=== PATIENT | male | born 1955 | race Caucasian/White ===

== ENCOUNTER → 2017-03-06 23:34 | Emergency (ER) | payer BC ==
[~2017-03-06 23:34] MED LIST: DOXYcycline CAP(*) 100 MG PO ONE
[2017-03-06 23:43] VITALS: BP 146/76
--- NOTE | 2017-05-15 10:03 | ED ---
Skin Complaint - HPI Summary HPI Summary: Pt here w/ tick on Rt posterior thigh. Not sure how long this has been attached. Attempted to remove on his own but due to its location, he has not been able to achieve this task. Denies fever, chills, aches, chest pain, shortness of breath. Imms are UTD. - History of Current Complaint Chief Complaint: EDGeneral Time Seen by Provider: 03/07/17 00:13 Stated Complaint: TICK ON RIGHT BUTTUCK Hx Obtained From: Patient Pain Intensity: 0 Pain Scale Used: 0-10 Numeric - Allergy/Home Medications Allergies/Adverse Reactions: Allergies Allergy/AdvReac Type Severity Reaction Status Date / Time Alcohol Allergy Intermediate Facial Verified 07/13/13 22:50 Redness/Flushing PMH/Surg Hx/FS Hx/Imm Hx Previously Healthy: Yes Endocrine/Hematology History: Reports: Hx Anticoagulant Therapy - ASPIRIN 81MG Cardiovascular History: Denies: Hx Pacemaker/ICD Sensory History: Denies: Hx Hearing Aid Psychiatric History: Denies: Hx Panic Disorder - Surgical History Surgery Procedure, Year, and Place: SPLEENECTOMY 1981. DEVIATED SEPTUM 1975. LEFT SHOULDER MUSCLE REPAIR 2000. RIGHT SHOULDER NERVE SURGERY 2005. SINUS SURGERY 2003 - Immunization History Immunizations Up to Date: Yes Infectious Disease History: Reports: Hx Shingles - 8 yrs ago Denies: Traveled Outside the [place] in Last 30 Days - Family History Known Family History: Positive: None - Social History Alcohol Use: Occasionally Hx Substance Use: No Substance Use Type: Reports: None Hx Tobacco Use: Yes Smoking Status (MU): Current Every Day Smoker Review of Systems Constitutional: Negative Cardiovascular: Negative Respiratory: Negative Positive: no symptoms reported Musculoskeletal: Negative Skin: Other - see HPI Negative: Rash, Bruising Neurological: Negative Psychological: Normal All Other Systems Reviewed And Are Negative: Yes Physical Exam Triage Information Reviewed: Yes Vital Signs On Initial Exam: Initial Vitals Temp Pulse Resp BP Pulse Ox 98.6 F 92 18 146/76 98 03/06/17 23:40 03/06/17 23:40 03/06/17 23:40 03/06/17 23:40 03/06/17 23:40 Vital Signs Reviewed: Yes Appearance: Positive: Well-Appearing, No Pain Distress, Well-Nourished Skin: Positive: Warm, Dry - mildly engorged tick on Rt posterior thigh - no EM rash Eyes: Positive: EOMI Respiratory/Lung Sounds: Positive: Breath Sounds Present Cardiovascular: Positive: Pulses are Symmetrical in both Upper and Lower Extremities Musculoskeletal: Positive: Normal, Strength/ROM Intact Neurological: Positive: Normal, Sensory/Motor Intact Psychiatric: Positive: Normal Procedures - Procedure Summary Procedure Summary: Area cleaned on Rt thigh and tick removed completely with tick removal device w/ o difficulty. Pt tolerated well. Diagnostics - Vital Signs Vital Signs Temp Pulse Resp BP Pulse Ox 03/06/17 23:40 98.6 F 92 18 146/76 98 - Laboratory Lab Statement: Any lab studies that have been ordered have been reviewed, and results considered in the medical decision making process. Course/Dx - Diagnoses Provider Diagnoses: Tick bite of right thigh Discharge - Discharge Plan Condition: Stable Disposition: HOME Patient Education Materials: Tick Bite (ED) Referrals: Juaquin Paz MD [Primary Care Provider] - Additional Instructions: Keep area clean - monitor for erythema migrans rash (aka Bulls eye rash). Follow-up with PCP this week for recheck of wound. *If you develop fever, chills, nausea, headache, joint aches, fatigue, palpitations, neuropathies, seek medical attention ANGELIQUE
== END | disposition home or self-care (01) ==
LOC: ED 23:34
DX: S70.361A Insect bite (nonvenomous), right thigh, initial encounter (principal); W57.XXXA Bitten or stung by nonvenomous insect and other nonvenomous arthropods, initial encounter; Y93.9 Activity, unspecified; Y92.9 Unspecified place or not applicable; F17.210 Nicotine dependence, cigarettes, uncomplicated; Z79.82 Long term (current) use of aspirin; Z79.01 Long term (current) use of anticoagulants
CPT/HCPCS: 99281; A9270-GY

== ENCOUNTER → 2017-12-24 06:56 | Day surgery (SDC) | payer BC ==
[~2017-12-24 06:56] MED LIST changes: +Buffered Lidocaine 0.9% SYRIN* 5 ML/SYR SYRINGE INTRADERM ONE; +Buffered Lidocaine 0.9% SYRIN* 5 ML/SYR SYRINGE ONE; +Bupivacaine 0.5% SDV PF* 10-30ML VIAL ONE; -DOXYcycline CAP(*) 100 MG PO ONE; +Dexamethasone IV* 4 MG/ML 1 ML (4 MG) IV SLOW PU ONE; +Dexamethasone IV* 4 MG/ML 1 ML (4 MG) ONE; +EPHEDrine (Pressors)* 50 MG/ML VIAL ONE; +EPINEPHRINE 1 MG/ML 1 ML VIAL ONE; +Famotidine IV* 10 MG/ML 2 ML (20 mg) IV ONE; +Famotidine IV* 10 MG/ML 2 ML (20 mg) ONE; +HYDROcodone/ACETAMIN 5-325 MG* 1 TAB PO PRN; +Ketorolac INJ* 30 MG/ML 1 ML VIAL ONE; +Levalbuterol 0.63MG/3ML NEB* UNIT OF USE INH ONE; +Lidocaine 2% PF * 5 ML VIAL ONE; +Midazolam* 1 MG/ML 5 ML VIAL (5 MG) ONE; +Mivacurium Chloride* 20 MG/10 ML VIAL IV ONE; +Naloxone* 0.4 MG/ML 1 ML VIAL IV PRN; +Ondansetron INJ* 2 MG/ML VIAL ONE; +PROCHLORPERAZINE INJ 5 MG/ML 2 ML VIAL IV PRN; +Propofol* 10 MG/ML 20 ML BTL IV PUSH ONE; +ROPIVACAINE 5 MG/ML 30 ML BTL (0.5%) ONE; +Scopolamine 1.5 mg* PATCH ONE; +Scopolamine 1.5 mg* PATCH TRANSDERM ONE; +Scopolamine PATCH Remove* 1 NOTE MISC PATCH OFF ONE; +Silver Nitrate/Potassium Nitr* 1 EA STICK ONE; +ceFAZolin 2 GM (*##) 2 GM/100 ML BAG USE CEFA2SOL IVPB ONE; +fentaNYL* 50 MCG/ML 2 ML VIAL (100 MCG VIAL) IV PRN; +fentaNYL* 50 MCG/ML 2 ML VIAL (100 MCG VIAL) ONE; +oxyCODONE/Acetamin 5/325 MG* TAB PO PRN
[2017-12-24 13:09] VITALS: BP 127/80
--- NOTE | 2017-12-25 23:52 | OP ---
OPERATIVE REPORT: DATE OF OPERATION: 12/24/17 DATE OF : 51 SURGEON: Etienne Paige MD FRONT DESK HOST: JOSE An Physician medical office assistant instructor was required for the length of the procedure for positioning, assistance with ins trumentation, retraction, and closure. ANESTHESIOLOGIST: Ayaka Castellano MD ANESTHESIA: General anesthesia, regional interscalene block anesthesia, approximately 10 cc of 0.5% Marcaine without epinephrine placed with local anesthesia into the subcutaneous tissue surrounding th e open biceps tendon skin incision site. PRE-OP DIAGNOSES: 1. Right shoulder AC, acromioclavicular joint osteoarthritis. 2. Right shoulder subacromial impingement. 3. Likely right shoulder proximal biceps tendinosis versus tear. 4. History of 2006 right shoulder open subacromial decompression by Dr. Burris. POST-OP DIAGNOSES: 1. Right shoulder high-grade partial-thickness undersided rotator cuff tendon tear, supraspinatus. 2. Right shoulder acromioclavicular joint osteoarthritis. 3. Right shoulder subacromial impingement. 4. Right shoulder superior labral tear, unstable. 5. History of 2006 right shoulder open subacromial decompression by Dr. Burris. OPERATIVE PROCEDURE: 1. Right shoulder arthroscopic rotator cuff tendon repair, supraspinatus. 2. Right shoulder arthroscopic subacromial decompression, revision. 3. Right shoulder arthroscopic distal clavicle resection. 4. Right shoulder arthroscopic limited debridement with release of biceps tendon, debridement of rot ator interval, and superior labrum. 5. Right shoulder open proximal biceps tenodesis. ANTIBIOTICS: Ancef 2 g IV. IV FLUIDS: 1100 cc crystalloid. SPECIMEN: None. IMPLANTS: Mitek Gryphon anchor, 5.5 mm, triple-loaded. Also Mitek Gryphon knotless anchor, 5.5 mm. Arthrex proximal biceps tendon button. COMPLICATIONS: None. ESTIMATED BLOOD LOSS: Minimal. 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 No inciting injury or trauma. The patient had had right shoulder difficulties before. He was seen in [address]ks and [facility] with rotator cuff tendinitis and treated with naproxen and physical therapy. The patient had also had a right shoulder open subacromial decompression performed by Dr. Burris in 2006. Therefore, the patient has had a long history of right shoulder pain, although with some acute worsen ing since August 2017. I attempted nonoperative treatment with a subacromial cortisone injection, which helped partially. T he patient did home exercises, which he was well familiar with, having had difficulties with both kamille ulders in the past including surgery. The patient had had contralateral left shoulder surgery in the distant past by Dr. Zabala. The patient thinks that the biceps and possibly the rotator cuff were t reated. The patient described significant anterior shoulder pain, but also pain with reaching. The patient declined physical therapy and was interested in surgical management. MRI demonstrated acr omioclavicular joint osteophytes and some minimal tendinopathy of the rotator cuff. No clear tear of the proximal biceps tendon, but the patient had had much tenderness to palpation of the biceps tendo n on exam. The patient opted for surgical management. We briefly discussed risks and potential complications. DESCRIPTION OF PROCEDURE: The patient signed a written consent in preoperative holding. Operative e xtremity was marked in preoperative holding. In the operative holding, the patient had an interscale ne regional nerve block performed by Dr. Castellano. The patient was taken back to the operating room and placed supine on the operating room table. The patient was sedated and intubated. The patient was t ransferred in the lateral decubitus position. Arm was placed in a longitudinal traction and the appr opriate amount of forward flexion and abduction, 15 pounds. Axillary roll was placed. Beanbag was escobedo rdened. All bony prominences were padded. The right shoulder was prepped and then draped. Surgical time-out performed. I entered the patient's right shoulder glenohumeral joint from posterior with a spinal needle and inj ected 30 cc of normal saline. I then established a right posterior shoulder arthroscopy portal using standard technique. There were 2 loose bodies within the glenohumeral joint, seemingly just cartila ginous. Surprisingly, as soon as I entered, there was a clear partial-thickness undersurface suprasp inatus rotator cuff tendon tear with a significant amount of footprint of the supraspinatus, greater tuberosity, visible. I made an anterior glenohumeral joint portal using standard technique under direct visualization. I debrided some tissue about the rotator interval. I used a shaver to remove the 2 cartilaginous loose bodies. I next entered an arthroscopic probe. I probed the superior labrum and there was a clear te ar and a clear lift off of more than 5 mm. The biceps tendon itself did not look significantly disea sed, although I had made the decision once I had seen the superior labrum tear that we would be requi red to cut and tenodesed the biceps. We had discussed preoperatively that if the biceps tendon were released, we would do an open tenodesis. I brought arthroscopic scissors into the joint and cut the biceps just off of its origin. I used an arthroscopic shaver to debride some of the superior labrum. I next used an arthroscopic probe and measured the exposed undersurface footprint. It was clearly wid er from medial to lateral than 6 mm. I would say it was 7 to 8 mm. Clearly greater than 50% of the thickness of the rotator cuff tendon. At that point, I decided that a rotator cuff repair would be r equired. I then slightly debrided some of the frayed tissue about the undersurface of the rotator cu ff in the location of the tear with an arthroscopic shaver. I then, from outside the shoulder while working in the glenohumeral joint, marked the area of the undersurface tear with a spinal needle. I then removed all fluid and instruments from the glenohumeral joint. I entered the subacromial space from posterior and anterior. The patient only had some mild bursitis throughout the subacromial space. I established a lateral subacromial portal under direct visualiza tion and used an arthroscopic shaver to debride that bursitis. I identified the spinal needle locati on. I probed that area of the rotator cuff tendon. I created a posterolateral subacromial portal fo r improve visualization. I would say that a tear seemed to be about the mid point of the supraspinat us, similar to what I saw from the glenohumeral joint side. I relatively easily completed that under surface rotator cuff tear with an arthroscopic shaver. With an arthroscopic shaver and then a vapor, I cleared off the adjacent footprint, readying it for implant placement. I also touched that spot w ith a cass to ready it for healing. I used a grasper to show that the rotator cuff would clearly adv ance to bone. I then viewing from posteriorly, did my subacromial decompression. Previously, I had debrided the un dersurface of the acromion with a vapor electrocautery. At this point, I visualized the anterior asp ect of the acromion and I debrided some remaining hook, both lateral and medial, using an arthroscopi c cass. There were some sutures visible, likely from some type of deltoid repair involved with the o pen subacromial decompression in the patient's prior open shoulder surgery. I next proceeded with rotator cuff repair. Through a superolateral skin incision, I placed an anchor . At first, I tried to place an anchor more medially in the footprint. However, the bone was not of high quality there. I suspect that, that was the location of a humeral head cyst. Therefore, I gigi som the anchor more laterally in the footprint, where the bone quality was excellent. I placed a tri ple-loaded anchor. At this point, I then had in place 2 Arthrex 7 mm plastic cannulas. Using the ideal suture passers from [employer], I then placed 3 horizontal mattress stitches in the rotato r cuff. After placing all the sutures, I then tied the knots. This repair as seemed under just a sl ightest bit of tension, likely because I was advancing the rotator cuff more laterally on the footpri nt. To supplement the repair and really pull those tissues down nicely, I decided to incorporate as well a lateral row anchor. This is despite the fact that after I placed my medial row anchor to prob ing with an arthroscopic probe, the repair was watertight and looked excellent. I cleared off some tissue lateral and inferior to the first anchor with vapor. I, next punched and p laced a knotless anchor with 4 sutures from the medial row, tightened appropriately. Rotator cuff te ndon apposition of bone was excellent, stable with movement of the shoulder and certainly to probing. I then addressed the AC joint. I removed some bursitic tissue from about the AC joint and then remov ed at least 8 mm at the distal end of the clavicle with an arthroscopic cass. I removed all instruments and fluid from the subacromial space. I closed skin incisions with figure- of-eight and 10 stitches using nylon 4.0 suture. We next softened the beanbag and converted the patient to a supine position with Anesthesia watching the head and neck throughout. We then translated the patient to more appropriately center him over t he OR table. A short longitudinal incision, perhaps 4 cm long was made over the anteromedial left upper arm, martine red just distal to the inferior edge of the pectoralis major tendon. I cut skin, dissected through s ubcutaneous tissue, palpated the pec major tendon and fall back to the bicipital groove. Retractors placed. The long head of the biceps tendon was pulled from the wound. Bicipital groove was cleared off with periosteal elevator and Bovie electrocautery. A pin was placed through the anterior humeral cortex. Marked appropriate exit point for a stitch based on the length tension relationship with the biceps. I placed 3 stitches with FiberLoop suture. I loaded the biceps button with the suture. I placed th e button and flipped it and tightened it. I placed a stitch. I next placed one more stitch using a free needle through the proximal biceps tendon for supplementation. Cut ends of sutures and end of b iceps, proximally. Irrigation. Removal of retractors. Closure of subcutaneous tissue with buried s imple stitches using Vicryl 3.0 suture. Closure of subcuticular layer with a running stitch using Mo nocryl 4.0 suture. Mastisol, Steri-Strips. 4x4 and then Tegaderm placed over the anterior incision. It should be noted that prior to dressing that wound, I placed 10 cc approximately of Marcaine 0.5% about the subcutaneous tissue about that wound. On the arthroscopy skin incisions, placed Xeroform followed by 4x4s, ABDs, and foam tape. The patien t's shoulder was placed in a sling with abduction pillow, UltraSling. Cooling unit was applied. The patient was extubated and brought to the PACU. Postoperatively, the patient will receive Keflex for infection prophylaxis and Percocet. The patient will start physical therapy within 1 week of procedure. The patient will take aspirin 325 mg p.o. b .i.d. x2 weeks postoperatively because of his factor V Leiden deficiency. The patient will follow up with me in 10 to 14 days postoperatively. [id number]/[facility] #: [id number]
== END | disposition home or self-care (01) ==
LOC: OR 06:56
PROVIDERS: ATTEND Orthopaedic Surgery
DX: M75.101 Unspecified rotator cuff tear or rupture of right shoulder, not specified as traumatic (principal); M75.41 Impingement syndrome of right shoulder; M75.21 Bicipital tendinitis, right shoulder; M24.111 Other articular cartilage disorders, right shoulder; M19.011 Primary osteoarthritis, right shoulder; F17.210 Nicotine dependence, cigarettes, uncomplicated; Z90.81 Acquired absence of spleen; G89.18 Other acute postprocedural pain
CPT/HCPCS: 36415; 86803; A9270-GY; C1776; J1100; J1885; J2250; J2405; J2704; J2795; J3010

== ENCOUNTER 2018-04-27 20:55 | Emergency (ER) | payer BC ==
[2018-04-27] MEDS ORDERED: Sulfamethox/Trimethoprim DS 800/160* TAB PO ONE (23:08)
--- NOTE | 2018-04-27 23:08 | ED ---
Skin Complaint - HPI Summary HPI Summary: 62-year-old male presents with rash to groin for the past for past couple days. The rash has been getting bigger. the area has become more painful. Has not come to head. No drainage from the rash. No new products or soaps. Denies any history of MRSA. Is not diabetic. Denies any history of abscess. Has never had this before. No fevers. No other symptoms. Has minimal surrounding redness to the area. Is not itchy. - History of Current Complaint Chief Complaint: EDRashSkinAbscess Time Seen by Provider: 04/27/18 21:54 Stated Complaint: RASH Pain Intensity: 2 - Allergy/Home Medications Allergies/Adverse Reactions: Allergies Allergy/AdvReac Type Severity Reaction Status Date / Time alcohol Allergy facial Verified 12/24/17 07:21 redness PMH/Surg Hx/FS Hx/Imm Hx Endocrine/Hematology History: Reports: Hx Anticoagulant Therapy - ASPIRIN 81MG Denies: Hx Diabetes Cardiovascular History: Denies: Hx Hypertension, Hx Pacemaker/ICD GI History: Denies: Other GI Disorders History: Denies: Hx Renal Disease Musculoskeletal History: Reports: Hx Arthritis - mild, knees Sensory History: Reports: Hx Contacts or Glasses - glasses Denies: Hx Hearing Aid Opthamlomology History: Reports: Hx Contacts or Glasses - glasses Psychiatric History: Denies: Hx Panic Disorder - Surgical History Surgery Procedure, Year, and Place: SPLEENECTOMY 1981. DEVIATED SEPTUM 1975. LEFT SHOULDER MUSCLE REPAIR 2000. RIGHT SHOULDER NERVE SURGERY 2005. SINUS SURGERY 2003 Hx Anesthesia Reactions: No Infectious Disease History: No Infectious Disease History: Reports: Hx Shingles - 8 yrs ago Denies: Traveled Outside the [place] in Last 30 Days - Family History Known Family History: Positive: None - Social History Alcohol Use: None Hx Substance Use: No Substance Use Type: Reports: None Hx Tobacco Use: Yes Smoking Status (MU): Current Every Day Smoker Amount Used/How Often: 5 cigs a day for 30 yrs Review of Systems Negative: Fever Negative: Chest Pain Negative: Shortness Of Breath Positive: Other - abscess left groin All Other Systems Reviewed And Are Negative: Yes Physical Exam Triage Information Reviewed: Yes Vital Signs On Initial Exam: Initial Vitals Temp Pulse Resp BP Pulse Ox 99.0 F 78 14 134/86 95 04/27/18 20:58 04/27/18 20:58 04/27/18 20:58 04/27/18 20:58 04/27/18 20:58 Vital Signs Reviewed: Yes Appearance: Positive: Well-Appearing Skin: Positive: Other - 3cm by 2cm on left groin Head/Face: Positive: Normal Head/Face Inspection Eyes: Positive: Normal, Conjunctiva Clear ENT: Positive: Pharynx normal Respiratory/Lung Sounds: Positive: Clear to Auscultation, Breath Sounds Present Cardiovascular: Positive: Normal, RRR Musculoskeletal: Positive: Normal Neurological: Positive: Normal Psychiatric: Positive: Normal Procedures - Incision and Drainage left groin Site: left groin Anesthesia: Local Instrument(s): Needle Diagnostics - Vital Signs Vital Signs Temp Pulse Resp BP Pulse Ox 04/27/18 20:58 99.0 F 78 14 134/86 95 - Laboratory Lab Statement: Any lab studies that have been ordered have been reviewed, and results considered in the medical decision making process. Course/Dx - Course Course Of Treatment: 62-year-old male presents with rash to groin for the past for past couple days. The rash has been getting bigger. the area has become more painful. Has not come to head. No drainage from the rash. No new products or soaps. Denies any history of MRSA. Is not diabetic. Denies any history of abscess. Has never had this before. No fevers. No other symptoms. Has minimal surrounding redness to the area. Is not itchy. On exam has abscess to left groin attempted to do a needle aspiration did not get anything. Will place on Bactrim. She'll place heat on area. Patient understands agrees the plan. - Differential Diagnoses - Skin Complaint Differential Diagnoses: Abscess, Cellulitis, Contact Dermatitis - Diagnoses Provider Diagnoses: Abscess Discharge - Sign-Out/Discharge Documenting (check all that apply): Patient Departure - Discharge Plan Condition: Good Disposition: HOME Prescriptions: Sulfamethox/Trimethoprim DS* [Bactrim DS 800/160 TAB*] 1 tab PO BID #19 tab Patient Education Materials: Abscess (ED) Referrals: Jadiel Omalley MD [Primary Care Provider] - Additional Instructions: Take antibiotic twice a day for 10 days, first dose given in ED Apply warm compresses to area Take ibuprofen or Tylenol for pain every 6 hours Follow up with primary within 5 days Return to ED if develop fever, area of redness spreads, or any new or worsening symptoms - Billing Disposition and Condition Condition: GOOD Disposition: Home
[2018-04-27 23:29] VITALS: BP 135/85
== END 2018-04-27 23:27 | disposition home or self-care (01) ==
LOC: ED 20:55
DX: L02.214 Cutaneous abscess of groin (principal); Z79.82 Long term (current) use of aspirin; F17.210 Nicotine dependence, cigarettes, uncomplicated
CPT/HCPCS: 10060; 99282; A9270-GY

== ENCOUNTER 2018-06-08 18:08 | Emergency (ER) | payer BC ==
[2018-06-08 18:19] VITALS: BP 147/102
--- OUTSIDE RECORDS SUMMARY | 2018-06-08 18:27 | XMS REPORT ---
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 Active Onset: 11/05/2011 Malaise and fatigue Alcides Dejesus M.D. Active Onset: 07/21/2012 Hyperlipidemia Alcides Dejesus M.D. Active Onset: 11/17/2012 Shoulder joint pain Alcides Dejesus M.D. Active Onset: 03/22/2013 Eruption Alcides Dejesus M.D. Active Onset: 04/19/2013 Lyme disease Alcides Dejesus M.D. Active Onset: 05/14/2016 History of polyp of colon Juaquin Paz M.D. Active Onset: 05/14/2016 Chronic cluster headache Juaquin Paz M.D. Active Onset: 05/14/2016 Benign prostatic hypertrophy without Juaquin Paz M.D. Active outflow obstruction Onset: 05/14/2016 Entire body organ Juaquin Paz M.D. Active Onset: 05/14/2016 Adult health examination Juaquin Paz M.D. Active Onset: 05/14/2016 Hypercoagulability state Juaquin Paz M.D. Active Family History Date Family Member(s) Problem(s) Comments General No early myocardial infarction or cerebrovascular accident, no colon or prostate cancer in nuclear family, unlce with prostate cancer - age 80's Father due to age 81 als () Father ALS Father high cholesterol Mother high cholesterol lives with daughter First Sister Hypercholesterolemia Social History Type Date Description Comments Marital Status Patient is single Living Situation Patient lives alone General works for [employer] Cigarette Use Patient is a current cigarette 1/2-3/4 ppd smoker, smokes every day ETOH Use Denies alcohol use Recreational Drug Use Denies Drug Use Smoking Heavy tobacco smoker (more than 10 cigarettes/day) Daily Caffeine Consumes on average 3 cups of coffee per day Exercise Type/Frequency Current walks more than 2 miles 5x week Allergies, Adverse Reactions, Alerts Date Description Reaction Status Severity Comments 07/03/2011 NKDA active 01/22/2010 Alcoholic Beverage active 01/22/2010 Seasonal active 07/03/2011 Dust Mites active 07/03/2011 Cam Grass active 07/03/2011 Maple active Medications Medication Date Status Form Strength Qnty SIG Indications Ordering Provider Aspirin / Active Tablets 81mg 1 po qd Unknown [address] Ledbetter / Active Tablets 10mg 30tab 1 by mouth Juaquin FAl 0000 s every at Shallish, bedtime as M.D. 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 2016 for smoking cessation Chantix Starting 05/21/ Hx Tablets 0.5mg X 11 1pack refill Juaquin F. Month Carlyle 2015 - & 1 mg X with 1 mg Shallish, by mouth M.D. 2015 twice a day Naproxen 07/25/ Hx Tablets 500mg 30tab 1 by mouth 726.19 Merrill 2013 - twice a Christiansen, 03/26/ day M.D. 2015 Cyclobenzaprine 07/25/ Hx Tablets 5mg 30tab 1 by mouth 726.19 Merrill HCL 2013 - three Christiansen, 03/26/ times a M.D. 2015 day as needed Doxycycline 04/19/ Hx Tablets 100mg 20tab one tab po 088.81 Mcgrath Monohydrate 2012 bid for 10 A. Dejesus, 10/25/ M.D. 2013 Doxycycline 03/22/ Hx Tablets 100mg 42tab one tab po 782.1 Mcgrath Hyclate 2012 bid CesarAl Dejesus, 04/19/ M.D. 2012 Loprox 01/22/ Hx Cream 0.77% 30gm apply bid 112.2 Meche 2009 - to [facility], 07/03/ affected Afnp-C 2010 area Cutivate / Hx Lotion 0.05% Apply qd Unknown 0000 - To 07/03/ Affected 2010 Area Verapamil HCL ER / Hx Caps ER 120mg 30cap 1 po the Unknown 0000 - 24HR s am 2016 Relpax / Hx Tablets 40mg 10tab 1 po qd Unknown 0000 - s prn 09/10/ headache, 2010 repeat in 2 hours if necessary Aleve 00/ Hx Tablets 220mg 1 by mouth Unknown 0000 - twice a day 2018 Immunizations CPT Code Status Date Vaccine Lot # [id number] Given 06/30/2017 Influenza Vac, Quadrivalent, [place] [address] Given 05/14/2016 Meningococcal Conjugate Vaccine,Serogroups For [id number] Intramuscular Use 62314 Given 05/14/2016 Tdap Tetanus, W Pertussis [id number] 77866 Given 05/14/2016 Pneumococcal Conjugate Vacc-13 [id number] 64327 Given 05/14/2016 Hib PRP-T Conjugate 4 Dose Schedule [id number] [id number] Given 11/17/2013 Zostivax [id number] 17451 Given 07/30/2011 DO Not Use Split Influenza Virus Vaccine 18302 Given 02/26/2010 Tetanus And Diptheria Adult Preservative Free [id number] >7Yrs Vital Signs Date Vital Result Comment 05/28/2018 BP Systolic 118 mmHg BP Diastolic 60 mmHg Heart Rate 72 /min Body Temperature 97.9 F Respiratory Rate 16 /min Height 68 inches 5'8" Weight 185.38 lb BMI (Body Mass Index) 28.2 kg/m2 12/16/2017 BP Systolic 122 mmHg BP Diastolic 86 mmHg Heart Rate 68 /min Body Temperature 98.1 F Respiratory Rate 18 /min Height 68 inches 5'8" Weight 183.00 lb BMI (Body Mass Index) 27.8 kg/m2 07/16/2017 BP Systolic 120 mmHg BP Diastolic 78 mmHg Heart Rate 72 /min Body Temperature 97.8 F Respiratory Rate 16 /min Height 68 inches 5'8" Weight 181.00 lb BMI (Body Mass Index) 27.5 kg/m2 08/05/2016 BP Systolic 120 mmHg BP Diastolic 80 mmHg Heart Rate 68 /min Body Temperature 98.6 F Respiratory Rate 18 /min O2 % BldC Oximetry 98 % Height 68.5 inches 5'8.50" Weight 183.00 lb BMI (Body Mass Index) 27.4 kg/m2 05/14/2016 BP Systolic 110 mmHg BP Diastolic 80 mmHg Heart Rate 68 /min Body Temperature 98.1 F Height 68.5 inches 5'8.50" Weight 178.00 lb BMI (Body Mass Index) 26.7 kg/m2 03/26/2016 BP Systolic 128 mmHg BP Diastolic 82 mmHg Heart Rate 68 /min Body Temperature 98.1 F Height 68 inches 5'8" Weight 185.12 lb BMI (Body Mass Index) 28.1 kg/m2 07/25/2014 BP Systolic 110 mmHg BP Diastolic 70 mmHg Heart Rate 84 /min Body Temperature 99.3 F Respiratory Rate 16 /min Height 68 inches 5'8" Weight 180.00 lb BMI (Body Mass Index) 27.4 kg/m2 10/26/2013 BP Systolic 116 mmHg BP Diastolic 70 mmHg Heart Rate 90 /min Body Temperature 98.4 F Height 68 inches 5'8" Weight 187.38 lb BMI (Body Mass Index) 28.5 kg/m2 04/19/2013 BP Systolic 100 mmHg BP Diastolic 70 mmHg Heart Rate 76 /min Body Temperature 96.9 F Respiratory Rate 16 /min Height 68 inches 5'8" Weight 180.00 lb BMI (Body Mass Index) 27.4 kg/m2 03/22/2013 BP Systolic 112 mmHg BP Diastolic 78 mmHg Heart Rate 72 /min Body Temperature 97.6 F Respiratory Rate 15 /min Height 68 inches 5'8" Weight 179.00 lb BMI (Body Mass Index) 27.2 kg/m2 11/17/2012 BP Systolic 114 mmHg BP Diastolic 76 mmHg Heart Rate 78 /min Body Temperature 98.3 F Height 68 inches 5'8" Weight 185.00 lb BMI (Body Mass Index) 28.1 kg/m2 07/21/2012 BP Systolic 116 mmHg BP Diastolic 80 mmHg Heart Rate 72 /min Body Temperature 97.3 F Height 68 inches 5'8" Weight 183.00 lb BMI (Body Mass Index) 27.8 kg/m2 Right Visual Acuity Distance 20/35 uncorrected Left Visual Acuity Distance 20/25 05/05/2012 BP Systolic 102 mmHg BP Diastolic 72 mmHg Heart Rate 72 /min Body Temperature 97.7 F Height 68 inches 5'8" Weight 176.00 lb BMI (Body Mass Index) 26.8 kg/m2 03/10/2012 BP Systolic 102 mmHg BP Diastolic 70 mmHg Heart Rate 78 /min Body Temperature 97.5 F Height 68 inches 5'8" Weight 181.00 lb BMI (Body Mass Index) 27.5 kg/m2 11/05/2011 BP Systolic 102 mmHg BP Diastolic 70 mmHg Heart Rate 66 /min Body Temperature 96.8 F Height 68 inches 5'8" Weight 188.00 lb BMI (Body Mass Index) 28.6 kg/m2 10/01/2011 BP Systolic 100 mmHg BP Diastolic 64 mmHg Heart Rate 76 /min Body Temperature 97.6 F Height 68 inches 5'8" Weight 189.00 lb BMI (Body Mass Index) 28.7 kg/m2 09/10/2011 BP Systolic 120 mmHg BP Diastolic 70 mmHg Heart Rate 72 /min Body Temperature 98.5 F Respiratory Rate 15 /min Height 68 inches 5'8" Weight 182.00 lb BMI (Body Mass Index) 27.7 kg/m2 07/03/2011 BP Systolic 122 mmHg BP Diastolic 72 mmHg Heart Rate 72 /min Height 68 inches 5'8" Weight 182.00 lb BMI (Body Mass Index) 27.7 kg/m2 02/26/2010 BP Systolic 138 mmHg BP Diastolic 74 mmHg Heart Rate 100 /min Body Temperature 97.8 F Respiratory Rate 18 /min Height 68 inches 5'8" Weight 180.00 lb BMI (Body Mass Index) 27.4 kg/m2 01/22/2010 BP Systolic 118 mmHg BP Diastolic 80 mmHg Heart Rate 88 /min Body Temperature 98.1 F Respiratory Rate 16 /min Height 68 inches 5'8" Weight 180.00 lb BMI (Body Mass Index) 27.4 kg/m2 Results Test Date Test Result H/L Range Note Laboratory test 05/28/2018 C-Reactive Protein, <pending> finding Quant Laboratory test 05/28/2018 TSH <pending> 0.5-5.0 finding Laboratory test 05/28/2018 Sedimentation Rate 40MM finding CBC Electronic ([facility] 05/28/2018 WBC 6.76 4.0-10.0 New) RBC 4.66 3.93-6.0 Hemoglobin (Fma/CMC/CTX) 15.0 g/dL 12.0-17.0 Hematocrit (Fma/CMC/CTX) 44.1 % 35.0-50.0 Mean Corpuscular Vol 94.6 fL 80-95 Mean Corpuscular Hemoglobin 32.2 pg 25.6-32.2 Mean Corpuscular Hemo Concen 34.0 g/dL 32.2-36.0 Platelets 377 10^3/ul 163-400 RDW-CV 14.6 High 11.6-14.4 Mean Platelet Volume 10.5 fL 8.0-12.4 Absolute Neutrophils BLD 3.09 1.56-6.13 Absolute Lymphocytes 2.57 1.18-3.74 Absolute Monocytes BLD Auto 0.85 High 0.24-0.82 Absolute Eos Blood 0.21 0.04-0.54 Absolute Basophils 0.03 0.01-0.08 Neutrophil % 45.8 % 34.0-70.0 Lymph% 38.0 % 20.0-52.0 Monocytes % 12.6 % High 5.0-12.0 Eos % 3.1 % 0.7-7.0 Basophil% 0.4 % 0-1.2 CBC Electronic (a New) 12/16/2017 WBC 8.61 4.0-10.0 RBC 4.54 3.93-6.0 Hemoglobin (Fma/CMC/CTX) 15.2 g/dL 12.0-17.0 Hematocrit (Fma/CMC/CTX) 43.6 % 35.0-50.0 Mean Corpuscular Vol 96.0 fL High 80-95 Mean Corpuscular Hemoglobin 33.5 pg High 25.6-32.2 Mean Corpuscular Hemo Concen 34.9 g/dL 32.2-36.0 Platelets 332 10^3/ul 163-400 RDW-CV 13.3 11.6-14.4 Mean Platelet Volume 9.7 fL 9.4-12.4 Absolute Neutrophils BLD 5.39 1.56-6.13 Absolute Lymphocytes 2.44 1.18-3.74 Absolute Monocytes BLD Auto 0.62 0.24-0.82 Absolute Eos Blood 0.11 0.04-0.54 Absolute Basophils 0.04 0.01-0.08 Neutrophil % 62.6 34.0-70.0 Lymph% 28.3 % 20.0-52.0 Monocytes % 7.2 % 5.0-12.0 Eos % 1.3 % 0.7-7.0 Basophil% 0.5 % 0.1-1.2 Laboratory test finding 12/16/2017 PSA 1.0 ng/mL 0.0-4.0 Comprehensive Metabolic Prof 12/16/2017 Sodium 139 mEq/L 134-149 Potassium 4.4 mEq/L 3.6-5.5 Chloride 102 mEq/L 94-112 Carbon Dioxide 29 mEq/L 21-32 Glucose 102 mg/dL 70-105 BUN 11 mg/dL 6-26 Creatinine 0.9 mg/dL 0.6-1.4 BUN/Creat Ratio 12.2 CALC 8.0-36.0 Calcium 9.9 mg/dL 8.6-10.2 Total Protein 7.2 g/dL 6.4-8.3 Albumin 4.6 g/dL 3.8-5.5 Globulin 2.6 g/dL 2.0-4.8 A/G Ratio 1.8 CALC 0.6-2.3 Alk. Phosphatase 54 U/L 22-95 Alt (SGPT) 18 U/L 7-35 Ast (Sgot) 17 U/L 5-34 Total Bilirubin 0.6 mg/dL 0.2-1.3 GFR Non- >60 ml/min/1.73m^ >=60 GFR >60 ml/min/1.73m^ >=60 Complete Blood Count 07/22/2017 WBC 7.8 x10^3/UL 3.6-9.6 RBC 4.87 x10^6/UL 3.90-5.70 HGB 16.2 g/dL 12.1-17.2 HCT 48 % 36-50 MCV 98.0 fL High 82.2-97.4 MCH 33.2 pg 27.6-33.3 MCHC 33.8 g/dL 33.0-35.5 RDW 14.5 % High 11.6-13.7 PLT 320 x10^3/UL 150-400 MPV 7.7 fL 7.4-10.4 Gran # 5.3 x10^3/UL 1.5-7.2 Lymph# 2.1 x10^3/UL 0.7-4.9 [place]# 0.4 x10^3/UL 0.1-0.9 Gran % 66.3 % 42.2-75.2 Lymph % 27.6 % 20.5-51.1 [place]% 6.1 % 1.7-9.3 Comprehensive Metabolic Prof 07/22/2017 Sodium 142 mEq/L 134-149 Potassium 5.0 mEq/L 3.6-5.5 Chloride 109 mEq/L 94-112 Carbon Dioxide 28 mEq/L 21-32 Glucose 103 mg/dL 70-105 BUN 19 mg/dL 6-26 Creatinine 1.0 mg/dL 0.6-1.4 BUN/Creat Ratio 19.0 CALC 8.0-36.0 Calcium 10.1 mg/dL 8.6-10.2 Total Protein 7.3 g/dL 6.4-8.3 Albumin 4.5 g/dL 3.8-5.5 Globulin 2.8 g/dL 2.0-4.8 A/G Ratio 1.6 CALC 0.6-2.3 Alk. Phosphatase 62 U/L 22-95 Alt (SGPT) 19 U/L 7-35 Ast (Sgot) 24 U/L 5-34 Total Bilirubin 0.3 mg/dL 0.2-1.3 GFR Non- >60 ml/min/1.73m^ >=60 GFR >60 ml/min/1.73m^ >=60 Lipid Profile 07/22/2017 Cholesterol 242 mg/dL High 120-200 Triglycerides 162 mg/dL 30-200 HDL Cholesterol 50 mg/dL 30-70 LDL (Calculated) 160 CALC High 0-129 VLDL Cholesterol 32 mg/dL 0-50 HDL Risk Factor 4.8 CALC High 0.0-4.4 Laboratory test finding 07/22/2017 TSH 3.43 mIU/L 0.50-6.00 PSA 0.9 ng/mL 0.0-4.0 Free T4 1.30 ng/dL 0.75-1.54 Laboratory test finding 11/25/2016 PSA Diagnostic 0.900 ng/mL 0-4.0 1 Laboratory test finding 05/14/2016 PSA 1.1 ng/mL 0.0-4.0 Comprehensive Metabolic Prof 05/14/2016 Sodium 142 mEq/L 134-149 Potassium 4.6 mEq/L 3.6-5.5 Chloride 107 mEq/L 94-112 Carbon Dioxide 27 mEq/L 21-32 Glucose 95 mg/dL 70-105 BUN 8 mg/dL 6-26 Creatinine 0.9 mg/dL 0.6-1.4 BUN/Creat Ratio 8.9 CALC 8.0-36.0 Calcium 10.1 mg/dL 8.6-10.2 Total Protein 7.0 g/dL 6.4-8.3 Albumin 4.4 g/dL 3.8-5.5 Globulin 2.6 g/dL 2.0-4.8 A/G Ratio 1.7 CALC 0.6-2.3 Alk. Phosphatase 58 U/L 22-95 Alt (SGPT) 18 U/L 7-35 Ast (Sgot) 23 U/L 5-34 Total Bilirubin 0.6 mg/dL 0.2-1.3 GFR Non- >60 ml/min/1.73m^ >=60 GFR >60 ml/min/1.73m^ >=60 Lipid Profile 05/14/2016 Cholesterol 223 mg/dL High 120-200 Triglycerides 112 mg/dL 30-200 HDL Cholesterol 52 mg/dL 30-70 LDL (Calculated) 149 CALC High 0-129 VLDL Cholesterol 22 mg/dL 0-50 HDL Risk Factor 4.3 CALC 0.0-4.4 Laboratory test finding 05/14/2016 TSH 2.64 mIU/L 0.50-6.00 CBC Electronic (Fma) 05/14/2016 WBC 7.1 3.6-9.6 RBC 4.60 3.90-5.70 Hemoglobin (Fma/CMC/CTX) 15.2 g/dL 12.1 - 17.2 Hematocrit (Fma/CMC/CTX) 45.8 % 36.1 - 50.3 Platelets 297 10^3/ul 150-400 Lymph% 35.3 % 17.0-48.0 Mixed% 5.3 Neutrophils % 59.4 Mean Corpuscular Vol 100 High 82.2-97.4 Mean Corpuscular Hemoglobin 33.2 27.6-33.3 Mean Corpuscular Hemo Concen 33.3 32.0-36.0 RDW 13.6 11.6-13.7 Mean Platelet Volume 7.0 5.5-11.0 Surgical Pathology 04/11/2014 S RUN DATE: 04/12/ <SEE NOTE> 2 Lipid Profile 11/17/2013 Cholesterol 238 mg/dL High 120-200 HDL 72 mg/dL High 30-70 Triglycerides 73 mg/dL 30-200 HDL Risk Factor 3.3 CALC 0.0-4.4 LDL (Calculated) 152 CALC High 0-129 VLDL (Calculated) 15 mg/dL 0-50 Comprehensive Metabolic Prof 11/17/2013 Albumin 4.8 g/dL 3.8-5.5 Alk. Phos. 75 U/L 22-95 Alt (SGPT) 17 U/L 10-40 Ast (Sgot) 23 U/L 5-34 BUN 16 mg/dL 6-26 Calcium 9.5 mg/dL 8.6-10.2 Chloride 102 mEq/L 94-112 Creatinine 1.1 mg/dL 0.6-1.4 Carbon Dioxide 25 mEq/L 21-32 Glucose 100 mg/dL 70-105 Sodium 141 mEq/L 134-149 Total Bilirubin 0.8 mg/dL 0.2-1.3 Total Protein 7.6 g/dL 6.3-8.1 Potassium 4.7 mEq/L 3.6-5.5 Globulin 2.8 g/dL 2.0-4.8 A/G Ratio 1.7 Calc 0.6-2.3 BUN/Creat Ratio 14.2 Calc 8.0-36.0 Laboratory test finding 11/17/2013 PSA 0.97 ng/mL 0.00-4.00 Ua - Non Micro (Fma) 10/26/2013 Appearance clear Color yellow Glucose, Urine (Fma/CMC/CTX) - Bilirubin - Ketones - SP Grav 1.025 Blood - PH 5.5 Protein - Urobil 0.2 Nitrite - Leukocytes (Fma/CMC/Centrex) - Comprehensive Metabolic Prof 04/06/2013 Albumin 4.2 g/dL 3.8-5.5 Alk. Phos. 80 U/L 22-95 Alt (SGPT) 24 U/L 10-40 Ast (Sgot) 21 U/L 5-34 BUN 14 mg/dL 6-26 Calcium 9.2 mg/dL 8.6-10.2 Chloride 103 mEq/L 94-112 Creatinine 1.1 mg/dL 0.6-1.4 Carbon Dioxide 25 mEq/L 21-32 Glucose 101 mg/dL 70-105 Sodium 141 mEq/L 134-149 Total Bilirubin 0.3 mg/dL 0.2-1.3 Total Protein 7.0 g/dL 6.3-8.1 Potassium 4.0 mEq/L 3.6-5.5 Globulin 2.8 g/dL 2.0-4.8 A/G Ratio 1.5 Calc 0.6-2.3 BUN/Creat Ratio 13.3 Calc 8.0-36.0 Lyme Igg/M W/RFX West 03/22/2013 Lyme IgG/IgM Ab 6.72 index High 0.00- 0.90 3 Lyme Ab Interp.,Eia Positive Lyme Disease Ab, Quant, IgM 9.06 index High 0.00-0.90 4 Lyme Ab IgM Interp., Eia Positive Lyme Western Blot Ser 03/22/2013 IgG P93 Ab. Absent IgG P66 Ab. Absent IgG P58 Ab. Absent IgG P45 Ab. Absent IgG P41 Ab. Absent IgG P39 Ab. Absent IgG P30 Ab. Absent IgG P28 Ab. Absent IgG P23 Ab. Present IgG P18 Ab. Absent Lyme IgG WB Interp. Negative 5 IgM P41 Ab. Present IgM P39 Ab. Absent IgM P23 Ab. Present Lyme IgM WB Interp. Positive 6 Comprehensive Metabolic Prof 03/22/2013 Albumin 4.8 g/dL 3.8-5.5 Alk. Phos. 149 U/L High 22-95 Alt (SGPT) 84 U/L High 10-40 Ast (Sgot) 44 U/L High 5-34 BUN 13 mg/dL 6-26 Calcium 10.0 mg/dL 8.6-10.2 Chloride 99 mEq/L 94-112 Creatinine 1.1 mg/dL 0.6-1.4 Carbon Dioxide 28 mEq/L 21-32 Glucose 78 mg/dL 70-105 Sodium 141 mEq/L 134-149 Total Bilirubin 0.3 mg/dL 0.2-1.3 Total Protein 7.7 g/dL 6.3-8.1 Potassium 5.5 mEq/L 3.6-5.5 Globulin 2.9 g/dL 2.0-4.8 A/G Ratio 1.6 Calc 0.6-2.3 BUN/Creat Ratio 12.2 Calc 8.0-36.0 CBC Manual Diff-a 03/22/2013 WBC 6.9 3.6-9.6 RBC 4.55 3.90-5.70 Hemoglobin (Fma/CMC/CTX) 14.3 g/dL 12.1 - 17.2 Hematocrit (Fma/CMC/CTX) 43.2 % 36.1 - 50.3 Mean Corpuscular Vol 95 82.2-97.4 Mean Corpuscular Hemoglobin 31.5 27.6-33.3 Mean Corpuscular Hemo Concen 33.1 32.0-36.0 Platelets 591 10^3/ul High 150-400 RDW 13.8 High 11.6-13.7 Mean Platelet Volume 6.3 Low 6.5-11.0 Neutrophil 53 Band 5 Lymphocytes 31 Monocyte 7 Eosinophils 1 Atypical Lymph 3 Laboratory test finding 03/16/2013 Lyme Disease Serology Negative Negative 7 Comp Metabolic Panel 03/15/2013 Sodium 136 mmol/L 133-145 Potassium 3.8 mmol/L 3.5-5.0 Chloride 101 mmol/L 101-111 Co2 Carbon Dioxide 29.0 mmol/L 22-32 Anion Gap 6.0 mmol/L 2-11 Glucose 104 mg/dL High 70-100 Blood Urea Nitrogen 9 mg/dL 6-24 Creatinine 0.80 mg/dL 0.50-1.40 BUN/Creatinine Ratio 11.3 8-20 Calcium 8.7 mg/dL 8.1-9.9 Total Protein 6.8 g/dL 6.2-8.1 Albumin 3.4 g/dL Low 3.6-5.4 Globulin 3.4 g/dL 2-4 Albumin/Globulin Ratio 1.0 1-3 Total Bilirubin 0.5 mg/dL 0.4-1.5 Alkaline Phosphatase 95 U/L 30-110 Alt 61 U/L High 14-54 Ast 58 U/L High 12-42 Egfr Non- 98.9 >60 Egfr 127.2 >60 8 CBC Auto Diff 03/15/2013 White Blood Count 7.2 10^3/uL 4.8-10.8 Red Blood Count 4.13 10^6/uL 4.0-5.4 Hemoglobin 13.5 g/dL Low 14.0-18.0 Hematocrit 39 % Low 42-52 Mean Corpuscular Volume 95 fL High 80-94 Mean Corpuscular Hemoglobin 33 pg High 27-31 Mean Corpuscular HGB Conc 35 g/dL 31-36 Red Cell Distribution Width 14 % 10.5-15 Platelet Count 268 10^3/uL 150-450 Mean Platelet Volume 8 um3 7.4-10.4 Abs Neutrophils 4.8 10^3/uL 1.5-7.7 Abs Lymphocytes 1.5 10^3/uL 1.0-4.8 Abs Monocytes 0.9 10^3/uL High 0-0.8 Abs Eosinophils 0 10^3/uL 0-0.6 Abs Basophils 0.1 10^3/uL 0-0.2 Abs Nucleated RBC 0 10^3/uL Manual Differential 03/15/2013 Neutrophil % 71 % 38-83 Band % 1 % 0-8 Lymphocytes % 18 % Low 25-47 Monocytes % 8 % 0-13 Eosinophils % 1 % 0-6 Reactive Lymph % 1 % 0-6 RBC Morphology Normal Normal Hepatitis Acute Panel 03/15/2013 Hepatitis B Surface Nonreactive Nonreactive Antigen Hepatitis B Core IgM Nonreactive Nonreactive Hepatitis A AB IgM Nonreactive Nonreactive Hepatitis C Antibody Nonreactive Nonreactive Laboratory test finding 08/09/2012 HIV 1 2 AB Self Nonreactive Nonreactive 9 Referred Comp Metabolic Panel 08/03/2012 Sodium 139 mmol/L 133-145 Potassium 4.6 mmol/L 3.5-5.0 Chloride 104 mmol/L 101-111 Co2 Carbon Dioxide 29.0 mmol/L 22-32 Anion Gap 6.0 mmol/L 2-11 Glucose 104 mg/dL High 70-100 Blood Urea Nitrogen 12 mg/dL 6-24 Creatinine 0.90 mg/dL 0.50-1.40 BUN/Creatinine Ratio 13.3 8-20 Calcium 9.7 mg/dL 8.1-9.9 Total Protein 6.9 GM/DL 6.2-8.1 Albumin 3.9 GM/DL 3.6-5.4 Globulin 3.0 GM/DL 2-4 Albumin/Globulin Ratio 1.3 1-3 Total Bilirubin 0.6 mg/dL 0.1-1.0 10 Alkaline Phosphatase 59 U/L 30-110 Alt 36 U/L 14-54 Ast 30 U/L 12-42 Egfr Non- 86.4 >60 Egfr 111.1 >60 11 Lipid Profile (Trig/Chol/HDL) 08/03/2012 Triglycerides 136 mg/dL 40-200 Cholesterol 264 mg/dL High Less than 200 12 HDL Cholesterol 60 mg/dL 40-60 13 Cholesterol/HDL Ratio 4.4 AVERAGE 1-4.44 LDL Cholesterol 176.8 mg/dL High Less Than 100 Laboratory test finding 08/03/2012 PSA Screening 0.9 NG/ML 0-4.0 14 Ua - Non Micro ([facility]ma) 07/21/2012 Appearance CLEAR Color YELLOW Glucose, Urine (Fma/CMC/CTX) NEG Bilirubin NEG Ketones NEG SP Grav 1.010 Blood NEG PH 6.0 Protein NEG Urobil 0.2 Nitrite NEG Leukocytes (Fma/CMC/Centrex) NEG Achr Binding Abs, Serum 05/05/2012 AChR Binding Abs, 0.04 nmol/L 0.00- 0.24 15 Serum Laboratory test finding 05/05/2012 Achr Blocking Abs, 13 % 0-25 16 Serum Testosterone Free & Weekly 03/10/2012 Testosterone, Serum 362 ng/dL 348- 1197 Bound Testost., % Free+Weakly Bound 13.0 % 9.0-46.0 Testost., F+W Bound 47.1 ng/dL 40.0-250.0 Laboratory test finding 01/11/2012 CPK (Creatine Kinase) 120 U/L 0-200 Vitamin B12 340 pg/mL 180-914 C Reactive Protein 1.1 mg/dL High Less Than 0.5 CBC With Manual Diff 01/11/2012 White Blood Count 6.2 CUMM 4.8-10.8 Red Cell Count 4.47 CUMM Low 4.6-6.2 Hemoglobin 15.0 g/dL 14.0-18.0 Hematocrit 43 % 42-52 Mean Corpuscular Volume 96 um3 High 80-94 Mean Corpuscular Hemoglob 34 pg High 27-31 Mean Corpuscular HGB Cone 35 g/dL 32-36 Redcell Distribution WDTH 14 % 10.5-15 Platelet Count 295 CUMM 150-450 Mean Platelet Volume 8.9 um3 7.4-10.4 Polysegmented Neutrophil 51 % 38-83 Band Neutrophil 1 % 0-8 Lymphocyte 36 % 25-47 Monocyte 8 % 0-13 Eosinophil 3 % 0-6 Basophil 1 % 0-2 Absolute Neutrophil Count 3.2 Anisocytosis SLIGHT Laboratory test finding 01/11/2012 Erythrocyte Sed Rate 8 MM/HR 0-20 Moe (Antinuclear Antibodies) NEGATIVE Negative Stacie Screen NEGATIVE Negative 17 Anti Dna (Double Stranded Dna) NEGATIVE Negative Hla B27 Negative () 18 Laboratory test finding 11/05/2011 TSH 2.62 mIU/L 0.50-6.00 Free T4 1.08 ng/dL 0.75-1.54 Laboratory test finding 11/05/2011 LDH 148 U/L 20-190 19 CBC Electronic (a) 11/05/2011 WBC 4.7 3.6-9.6 RBC 4.80 3.90-5.70 Hemoglobin (Fma/CMC/CTX) 15.4 g/dL 12.1 - 17.2 Hematocrit (Fma/CMC/CTX) 45.1 % 36.1 - 50.3 Platelets 347 10^3/ul 150-400 Lymph% 49.7 20.5-51.1 Mixed% 5.4 Neutrophils % 44.9 Mean Corpuscular Vol 94.0 82.2-97.4 Mean Corpuscular Hemoglobin 32.1 27.6-33.3 Mean Corpuscular Hemo Concen 34.1 32.0-36.0 RDW 13.4 11.6-13.7 Mean Platelet Volume 10.4 6.5-11.0 Testosterone Free & Weekly 10/01/2011 Testosterone, Serum 361 ng/dL 348- 1197 Bound Testost., % Free+Weakly Bound 18.9 % 9.0-46.0 Testost., F+W Bound 68.2 ng/dL 40.0-250.0 Laboratory test 09/10/2011 D Dimer Quantitative < 200 NG/ML Less Than 20 , 21 finding 230 Moe Pattern & 07/03/2011 Speckled Pattern 1:160 High Titer Note: SEE NOTE 22 CBC Electronic ([facility]) 07/03/2011 WBC 5.2 3.6-9.6 RBC 4.80 3.90-5.70 Hemoglobin ([facility]ma/CMC/CTX) 15.4 g/dL 12.1 - 17.2 Hematocrit ([facility]ma/CMC/CTX) 46.2 % 36.1 - 50.3 Platelets 365 10^3/ul 150-400 Lymph% 34.4 20.5-51.1 Mixed% 11.5 23 Neutrophils % 54.1 Mean Corpuscular Vol 96 82.2-97.4 Mean Corpuscular Hemoglobin 32.1 27.6-33.3 Mean Corpuscular Hemo Concen 33.3 32.0-36.0 RDW 12.2 11.6-13.7 Mean Platelet Volume 8.1 6.5-11.0 Laboratory test finding 07/03/2011 Vitamin D, 25 Oh 29.9 ng/mL Low 32.0- 100.0 24 Lyme Igg/M W/RFX West 07/03/2011 Lyme IgG/IgM Ab <0.91 index 0.00-0.90 25 Lyme Disease Ab, Quant, IgM <0.91 index 0.00-0.90 26 Laboratory test finding 07/03/2011 Antinuclear Abs, Ifa See patterns 27 Lipid Profile 07/03/2011 Cholesterol 258 mg/dL High 120-200 HDL 64 mg/dL 30-70 Triglycerides 105 mg/dL 30-200 HDL Risk Factor 4.1 CALC High 0.0-4.0 LDL (Calculated) 174 CALC High 0-129 VLDL (Calculated) 21 mg/dL 0-50 Laboratory test finding 07/03/2011 Ferritin 79 ng/mL 22-415 Free T3 2.33 pg/mL 2.00-4.90 Free T4 0.76 ng/dL 0.75-1.54 TSH 2.67 mIU/L 0.50-6.00 B12 532 pg/mL 230-1050 Comprehensive Metabolic Prof 07/03/2011 Albumin 4.6 g/dL 3.8-5.5 Alk. Phos. 63 U/L 22-95 Alt (SGPT) 17 U/L 10-40 Ast (Sgot) 19 U/L 5-34 BUN 13 mg/dL 6-26 Calcium 9.9 mg/dL 8.6-10.2 Chloride 98 mEq/L 94-112 Creatinine 1.0 mg/dL 0.6-1.4 Carbon Dioxide 25 mEq/L 21-32 Glucose 98 mg/dL 70-105 Sodium 142 mEq/L 134-149 Total Bilirubin 0.4 mg/dL 0.2-1.3 Total Protein 7.6 g/dL 6.3-8.1 Potassium 5.1 mEq/L 3.6-5.5 Globulin 3.0 g/dL 2.0-4.8 A/G Ratio 1.5 Calc 0.6-2.2 BUN/Creat Ratio 13.2 Calc 8.0-36.0 Tick Identification 07/17/2010 Tick Identification TEST RESULT RETU 28 <SEE NOTE> Laboratory test finding 02/26/2010 PSA 1.50 ng/mL 0.00-4.00 Ua - Non Micro (a) 02/26/2010 Appearance CLEAR Color YELLOW Glucose, Urine (a/[facility]/CTX) NEG Bilirubin NEG Ketones TRACE SP Grav 1.020 Blood NEG PH 6.0 Protein NEG Urobil 1.0 E.U./dL Nitrite NEG Leukocytes ([facility]) NEG Lipid Profile 02/11/2010 Cholesterol 225 mg/dL High 120-200 HDL 49 mg/dL 30-70 Triglycerides 65 mg/dL 30-200 HDL Risk Factor 4.6 CALC 4.2-7.0 LDL (Calculated) 163 CALC High 0-129 VLDL (Calculated) 13 mg/dL 0-50 Comprehensive Metabolic Prof 02/11/2010 Albumin 4.5 g/dL 3.8-5.5 Alk. Phos. 61 U/L -95 Alt (SGPT) 14 U/L 10-40 Ast (Sgot) 17 U/L 5-34 BUN 16 mg/dL 6-26 Calcium 9.6 mg/dL 8.6-10.2 Chloride 99 mEq/L 94-112 Creatinine 1.1 mg/dL 0.6-1.4 Carbon Dioxide 27 mEq/L 21-32 Glucose 107 mg/dL High 70-105 Sodium 139 mEq/L 134-149 Total Bilirubin 0.5 mg/dL 0.2-1.3 Total Protein 7.2 g/dL 6.3-8.1 Potassium 4.7 mEq/L 3.6-5.5 Globulin 2.6 g/dL 2.0-4.8 A/G Ratio 1.7 Calc 0.6-2.2 BUN/Creat Ratio 14.9 Calc 8.0-36.0 1 Serum levels of PSA measured using the Corrine [place] DXI Hybritech immunoassay should not be interpreted as absolute evidence of the presence or absence of disease. The PSA value should be used in conjunction with other pertinent clinical diagnostic procedures. The values obtained with different assay methods or kits cannot be used interchangeably. 2 RUN DATE: 04/12/14 [facility] LAB LIVE PAGE 1 RUN TIME: [address] [place] [id number] Specimen Inquiry Name: ELIAZAR TO : [address]: Uzair Reynoso MD Acct: [id number] Unit: [id number] AGE: 58 Location: ENDO Re04/11/14 SEX: M Status: REG REF SPEC: [id number] DANIELA: 04/11/14- SUBM DR: Uzair Reynoso MD REQ: [id number] RECD: 04/11/14-1152 STATUS: JANET LEVI DR: Juaquin Paz MD _ ORDERED: LEVEL IV FINAL DIAGNOSIS Colon, hepatic flexure, biopsy: A. Tubular adenoma. B. No high grade dysplasia or malignancy. CLINICAL HISTORY Screening colonoscopy with personal history of polyps (2008) POST-OPERATIVE DIAGNOSIS Screening colonoscopy into cecum - small hepatic flexure polyp removed. Mild sigmoid diverticulosis GROSS DESCRIPTION The specimen is received in formalin labeled Eliazar To, Biopsy Hepatic Flexure Polyp and consists of a 0.4 x 0.2 x 0.2 cm. suárez-pink polypoid soft tissue fragment. Submitted entirely, one cassette. Signed (signature on file) Gomez Dewitt MD 1435 END OF REPORT * ML=Testing performed at Main Lab DEPARTMENT OF PATHOLOGY, [address] [place] [address] Gomez Dewitt M.D. Director [facility] # [id number] 3 Negative <0.91 Equivocal 0.91 - 1.09 Positive >1.09 Note: The CDC currently advises that Western blot testing be performed following all equivocal or positive EIA results. Final diagnosis should include appropriate clinical findings and a positive EIA which is also positive by Western blot. 4 Negative <0.91 Equivocal 0.91 - 1.09 Positive >1.09 . Note: IgM levels may peak at 3-6 weeks post infection, then gradually decline. FDA currently advises that Western Blot testing be performed following all equivocal or positive EIA results. Final diagnosis should include appropriate clinical findings and a positive EIA which is also positive by Western Blot. 5 Positive: 5 of the following Borrelia-specific bands: 18,23,28,30,39,41,45,58, 66, and 93. Negative: No bands or banding patterns which do not meet positive criteria. 6 Note: An equivocal or positive EIA result followed by a negative Western Blot result is considered NEGATIVE. An equivocal or positive EIA result followed by a positive Western Blot is considered POSITIVE by the CDC. . Positive: 2 of the following bands: 23,39 or 41 Negative: No bands or banding patterns which do not meet positive criteria. Criteria for positivity are those recommended by CDC/ASTPHLD. p23=Osp C, l32=pkglscmmn . Note: Sera from individuals with the following may cross react in the Lyme Western Blot assays: other spirochetal diseases (periodontal disease, leptospirosis, relapsing fever, yaws, and pinta); connective autoimmune (Rheumatoid Arthritis and Systemic Lupus Erythematosus and also individuals with Antinuclear Antibody); other infections ([place] Spotted Fever; Augusto-Izquierdo Virus, and Cytomegalovirus). . . 7 Serologic response to B. burgdorferi infection is not detected, but cannot rule out early infection during which low or undetectable antibody levels to B. burgdorferi may be present. If clinically indicated, a new serum specimen should be submitted in 7-14 days. Test Performed by: [place] [address] Drone Operator: Enmanuel Garvey III, M.D. 8 Because ethnic data is not always readily available, this report includes an eGFR for both -Americans and non- Americans. The National Kidney Disease Education Program (NKDEP) does not endorse the use of the MDRD equation for patients that are not between the ages of 18 and 70, are , have extremes of body size, muscle mass, or nutritional status, or are non- or non-. According to the National Kidney Foundation, irrespective of diagnosis, the stage of the disease is based on the level of kidney function: Stage Description GFR(mL/min/1.73 m(2)) 1 Kidney damage with normal or decreased GFR 90 2 Kidney damage with mild decrease in GFR 60-89 3 Moderate decrease in GFR 30-59 4 Severe decrease in GFR 15-29 5 Kidney failure <15 (or dialysis) 9 It is recognized that currently available assays for the detection of antibodies to HIV-1 and/or HIV-2 may not detect all infected individuals. HIV antibodies may be undetectable in some stages of the infection and in some clinical conditions. The performance of this assay has not been established for populations of infants or children. Assayed by Chemiluminescence Microparticle Immunoassay on the Siemens Advia Centaur CP. Values obtained with different methods or kits cannot be used interchangeably.The diagnostic specificity of the ADVIA Centaur 1/O/2 Enhanced assay in the low risk population was 99.90% (6052/6058) with a 95% confidence interval of 99.78 to 99.96%. 10 A metabolite of Naproxen, O-desmethylnaproxen, has been shown to interfere with the [place] method for measuring total bilirubin. Samples from patients who have taken Naproxen have shown spurious elevation in total bilirubin levels. 11 Because ethnic data is not always readily available, this report includes an eGFR for both -Americans and non- Americans. The National Kidney Disease Education Program (NKDEP) does not endorse the use of the MDRD equation for patients that are not between the ages of 18 and 70, are , have extremes of body size, muscle mass, or nutritional status, or are non- or non-. According to the National Kidney Foundation, irrespective of diagnosis, the stage of the disease is based on the level of kidney function: Stage Description GFR(mL/min/1.73 m(2)) 1 Kidney damage with normal or decreased GFR 90 2 Kidney damage with mild decrease in GFR 60-89 3 Moderate decrease in GFR 30-59 4 Severe decrease in GFR 15-29 5 Kidney failure <15 (or dialysis) 12 Desirable: Less than 200 MG/DL Borderline-High Risk: 200-239 MG/DL High-Risk: 240 MG/DL and over 13 HDL Interpretation: Undesirable: High Risk: Less than 40 MG/DL Desirable: Low Risk: Greater than 60 MG/DL 14 Serum levels of PSA measured using the Corrine [place] DXI Hybritech immunoassay should not be interpreted as absolute evidence of the presence or absence of disease. The PSA value should be used in conjunction with other pertinent clinical diagnostic procedures. The values obtained with different assay methods or kits cannot be used interchangeably. 15 Negative: 0.00 - 0.24 Borderline: 0.25 - 0.40 Positive: > 0.40 16 Negative: 0 - 25 Borderline: 26 - 30 Positive: >30 . Results for this test are for research purposes only by the assay's regulatory compliance officer. The performance characteristics of this product have not been established. Results should not be used as a diagnostic procedure without confirmation of the diagnosis by another medically established diagnostic product or procedure. 17 The above STACIE screen is designed for the detection of antibodies to extractable nuclear antigen (STACIE) in human serum. It is a combination test for the detection of antibodies to WET MILLING WHEEL OPERATOR, Sm, SS-A (Ro), and SS-B (La) nuclear antigens. 18 -- REFERENCE VALUE -- Not Applicable [address] DEJESUS [phone] PT IS WAITING IN OUTPATIENT LAB FOR FURTHER INSTRUCTIONS FROM DR DEJESUS 21 Please note: The following may produce a false positive D Dimer test: - Rheumatoid factor greater than 1400 IU/ml - Plasma hemoglobin greater than 0.5 gm/dl - Bilirubin greater than 18 mg/dl - Triglycerides greater than 1327 mg/dl - FDP greater than 10 ug/ml . 22 A positive MOE result may occur in healthy individuals or be associated with a variety of diseases. See interpre- tation below: . Pattern Antigen Detected Suggested Disease Association Homogeneous DNA(ds,ss,), High titers - SLE (Smooth) Histone Speckled Sm, WET MILLING WHEEL OPERATOR, SCL-70, SLE,MCTD,Scleroderma,Sjogrens SS-A/SS-B Nucleolar SCL-70, PM-1/SCL High titers Scleroderma Poly- myositis/Scleroderma Overlap Centromere Centromere PSS w/Crest syndrome variable 23 RESULTS RECHECKED 24 Effective August 31, 2011 Vitamin D, 25-Hydroxy reference intervals will be changing to 30-100. . Recent studies consider the lower limit of 32.0 ng/mL to be a threshold for optimal health. Tad SHEEHAN. J Nutr. 2004;135(2):317-22. 25 Negative <0.91 Equivocal 0.91 - 1.09 Positive >1.09 Note: The CDC currently advises that Western blot testing be performed following all equivocal or positive EIA results. Final diagnosis should include appropriate clinical findings and a positive EIA which is also positive by Western blot. 26 Negative <0.91 Equivocal 0.91 - 1.09 Positive >1.09 . Note: IgM levels may peak at 3-6 weeks post infection, then gradually decline. FDA currently advises that Western Blot testing be performed following all equivocal or positive EIA results. Final diagnosis should include appropriate clinical findings and a positive EIA which is also positive by Western Blot. 27 Negative <1:80 Borderline 1:80 Positive >1:80 28 TEST RESULT RETURNED FROM REFERENCE LABORATORY AND HARDCOPY SENT TO PHYSICIAN(S) OFFICE. Procedures Date CPT Code Description Status 12/16/2017 13942 Electrocardiogram Complete Completed 05/14/2016 07911 Electrocardiogram Complete Completed 04/11/2014 Colonoscopy Completed 07/21/2012 71991 Vision Test- screening test of visual acuity, Completed quantitative, bila 09/10/2011 78569 Electrocardiogram Complete Completed Encounters Type Date Location Provider CPT E/M Dx Office Visit 12/16/2017 3:40p [place] [address] Z01.810 F17.210 Z12.5 Z71.6 M75.21 M75.41 Office Visit 07/16/2017 3:45p Main Office CLARI Pack 80628 Z00.00 F17.210 Office Visit 08/05/2016 3:15p Main Office CLARI Pack 21434 J20.9 Office Visit 05/14/2016 2:40p Main Office Juaquin KelsyAl Paz M.D. 64244 F17.210 Z86.010 G44.029 N40.0 Z90.81 D68.59 Z00.00 Z23 Office Visit 03/26/2016 9:30a Main Office Demario Levine-C 17970 F51.04 F17.210 Office Visit 07/25/2014 2:20p Main Office Merrill Christiansen M.D. 05042 726.19 Office Visit 10/26/2013 3:00p Main Office Alcides Dejesus M.D. 37787 V70.0 V77.91 V76.51 V76.44 272.4 Office Visit 04/19/2013 9:30a Main Office Alcides Dejesus M.D. 61331 088.81 Office Visit 03/22/2013 2:20p Main Office Alcides Dejesus M.D. 70877 782.1 Office Visit 11/17/2012 6:40p Main Office Alcides Dejesus M.D. 73741 719.41 Office Visit 07/21/2012 2:20p Main Office Alcides Dejesus M.D. 48088 V70.0 V77.91 V76.51 V76.44 272.4 V72.0 Office Visit 05/05/2012 2:30p Main Office Alcides Dejesus M.D. 70353 780.79 729.1 Office Visit 03/10/2012 2:30p Main Office Alcides Dejesus M.D. 19533 780.79 Office Visit 11/05/2011 3:00p Main Office Alcides Dejesus M.D. 41977 780.79 Office Visit 10/01/2011 2:40p Main Office Alcides Dejesus M.D. 01546 780.79 Office Visit 09/10/2011 2:00p Main Office Alcides Dejesus M.D. 68348 786.09 790.6 Office Visit 07/03/2011 9:15a Main Office Adelaida Robertson [facility] 56231 780.79 V17.49 Office Visit 02/26/2010 1:10p Main Office Alcides Dejesus M.D. 95074 V70.0 V77.91 V76.51 V76.44 709.9 305.1 V06.5 v06.5 Office Visit 01/22/2010 1:00p Main Office Meche Lorenzo DemarioDillon 45208 112.2 V77.91 V78.1 Plan of Care 05/28/2018 - Jadiel Omalley, MDR53.83 Other fatigueAllComments:~B_~U_ Medication Management~b_~u_ Patient Understands medications he's taking? Yes No Are there Barriers to Adherence? Yes No Has the patient been asked about herbal supplements and therapies, and OTC meds? Yes No
--- NOTE | 2018-06-08 20:58 | ED ---
Skin Complaint - HPI Summary HPI Summary: Patient is a 62-year-old resends emergency department for a rash to his arms and legs 3 days. Patient states he was [place] [employer] on [place] cutting brush and developed an itching rash to arms and legs the following day. Symptoms are mild in severity. He states that rash has been blistering and leaking a clear/yellow fluid. Denies fever, chills. Denies significant past medical history. Symptoms are mild in severity. Itching is mildly relieved with hydrocortisone cream. - History of Current Complaint Chief Complaint: EDRashSkinAbscess Time Seen by Provider: 06/08/18 19:07 Stated Complaint: RASH Hx Obtained From: Patient Pain Intensity: 1 Pain Scale Used: 0-10 Numeric - Allergy/Home Medications Allergies/Adverse Reactions: Allergies Allergy/AdvReac Type Severity Reaction Status Date / Time alcohol Allergy facial Verified 12/24/17 07:21 redness PMH/Surg Hx/FS Hx/Imm Hx Previously Healthy: Yes Endocrine/Hematology History: Reports: Hx Anticoagulant Therapy - ASPIRIN 81MG Denies: Hx Diabetes Cardiovascular History: Denies: Hx Hypertension, Hx Pacemaker/ICD GI History: Denies: Other GI Disorders History: Denies: Hx Renal Disease Musculoskeletal History: Reports: Hx Arthritis - mild, knees Sensory History: Reports: Hx Contacts or Glasses - glasses Denies: Hx Hearing Aid Opthamlomology History: Reports: Hx Contacts or Glasses - glasses Psychiatric History: Denies: Hx Panic Disorder - Surgical History Surgery Procedure, Year, and Place: SPLEENECTOMY 1981. DEVIATED SEPTUM 1975. LEFT SHOULDER MUSCLE REPAIR 2000. RIGHT SHOULDER NERVE SURGERY 2005. SINUS SURGERY 2003 Hx Anesthesia Reactions: No Infectious Disease History: No Infectious Disease History: Reports: Hx Shingles - 8 yrs ago Denies: Traveled Outside the [place] in Last 30 Days - Family History Known Family History: Positive: None - Social History Occupation: Employed Full-time Lives: Alone Alcohol Use: None Hx Substance Use: No Substance Use Type: Reports: None Hx Tobacco Use: Yes Smoking Status (MU): Former Smoker Amount Used/How Often: 5 cigs a day for 30 yrs Review of Systems Constitutional: Negative Positive: Other - Pruritic rash All Other Systems Reviewed And Are Negative: Yes Physical Exam Triage Information Reviewed: Yes Vital Signs On Initial Exam: Initial Vitals Temp Pulse Resp BP Pulse Ox 98.4 F 88 18 147/102 96 06/08/18 18:14 06/08/18 18:14 06/08/18 18:14 06/08/18 18:14 06/08/18 18:14 Vital Signs Reviewed: Yes Appearance: Positive: Well-Appearing - Patient sitting on side of bed in no acute distress. Pleasant and talkative. Skin: Positive: Warm, Dry, Other - Linear, small blistering erythematous rash noted Parsley on bilateral arms and legs. Small amount of yellow crusting. Head/Face: Positive: Normal Head/Face Inspection Eyes: Positive: Normal, EOMI Neck: Positive: Supple Neurological: Positive: Normal, CN Intact II-III Psychiatric: Positive: Affect/Mood Appropriate Diagnostics - Vital Signs Vital Signs Temp Pulse Resp BP Pulse Ox 06/08/18 18:14 98.4 F 88 18 147/102 96 - Laboratory Lab Statement: Any lab studies that have been ordered have been reviewed, and results considered in the medical decision making process. Course/Dx - Course Course Of Treatment: Patient's rash is consistent with poison zoraida. Will treat with a course of steroids and hydrocortisone cream. Advised to take oral Benadryl or [id number] antihistamine for itching as directed. To schedule follow-up appointment with PCP if rash persists. Advised patient to wash all clothing and shoes may have come in contact in hot soapy water. Patient understands and agrees with plan. - Differential Diagnoses - Skin Complaint Differential Diagnoses: Cellulitis, Contact Dermatitis, Eczema, Poison Zoraida, Poison [place], Scabies - Diagnoses Provider Diagnoses: Poison zoraida Discharge - Sign-Out/Discharge Documenting (check all that apply): Patient Departure - Discharge Plan Condition: Good Disposition: HOME Prescriptions: Hydrocortisone 1% CREAM* [Hytone Cream 1%*] 1 applic TOPICAL BID #1 tube predniSONE TAB* [Deltasone TAB*] 50 mg PO Q24HR #5 tab Patient Education Materials: Poison Zoraida (ED) Referrals: Jadiel Omalley MD [Primary Care Provider] - Additional Instructions: Schedule a follow up appointment with PCP if rash persist Medication as directed Can take Benadryl or over the counter antihistamine for itching Wash all clothing and material that might have come into contact with poison zoraida Return to ER if symptoms change or worsen - Billing Disposition and Condition Condition: GOOD Disposition: Home
== END 2018-06-08 20:07 | disposition home or self-care (01) ==
LOC: ED 18:08
DX: L23.7 Allergic contact dermatitis due to plants, except food (principal); Z87.891 Personal history of nicotine dependence
CPT/HCPCS: 99281

== ENCOUNTER → 2019-01-31 20:24 | Emergency (ER) | payer MEDICARE, BC ==
--- NOTE | 2019-01-31 21:09 | ED ---
Bite Injury/Animal - HPI Summary HPI Summary: 63-year-old male presents with tick bite to left side of body. States he did not had it this morning. tried to remove the tick and it was unable to remove it. He has no medical conditions. no allergies medication. - History of Current Complaint Chief Complaint: EDGeneral Stated Complaint: TICK AND CANT GET IT OUT PER PT Time Seen by Provider: 01/31/19 20:55 Pain Intensity: 1 - Allergies/Home Medications Allergies/Adverse Reactions: Allergies Allergy/AdvReac Type Severity Reaction Status Date / Time alcohol Allergy facial Verified 12/24/17 07:21 redness PMH/Surg Hx/FS Hx/Imm Hx Endocrine/Hematology History: Reports: Hx Anticoagulant Therapy - ASPIRIN 81MG Denies: Hx Diabetes Cardiovascular History: Denies: Hx Hypertension, Hx Pacemaker/ICD GI History: Denies: Other GI Disorders History: Denies: Hx Renal Disease Musculoskeletal History: Reports: Hx Arthritis - mild, knees Sensory History: Reports: Hx Contacts or Glasses - glasses Opthamlomology History: Reports: Hx Contacts or Glasses - glasses Psychiatric History: Denies: Hx Panic Disorder - Surgical History Surgery Procedure, Year, and Place: SPLEENECTOMY 1981. DEVIATED SEPTUM 1975. LEFT SHOULDER MUSCLE REPAIR 2000. RIGHT SHOULDER NERVE SURGERY 2005. SINUS SURGERY 2003 Hx Anesthesia Reactions: No Infectious Disease History: No Infectious Disease History: Reports: Hx Shingles - 8 yrs ago Denies: Traveled Outside the [place] in Last 30 Days - Family History Known Family History: Positive: None - Social History Alcohol Use: None Hx Substance Use: No Substance Use Type: Reports: None Hx Tobacco Use: Yes Smoking Status (MU): Former Smoker Amount Used/How Often: 5 cigs a day for 30 yrs Review of Systems Negative: Fever Negative: Chest Pain Negative: Shortness Of Breath Positive: Other - tick present left side of body All Other Systems Reviewed And Are Negative: Yes Physical Exam Triage Information Reviewed: Yes Vital Signs On Initial Exam: Initial Vitals Temp Pulse Resp BP Pulse Ox 98.5 F 92 18 134/91 98 01/31/19 20:25 01/31/19 20:25 01/31/19 20:25 01/31/19 20:25 01/31/19 20:25 Vital Signs Reviewed: Yes Appearance: Positive: Well-Appearing Skin: Positive: Warm, Dry, Other - tick present on left side of back Head/Face: Positive: Normal Head/Face Inspection Eyes: Positive: Normal, Conjunctiva Clear ENT: Positive: Pharynx normal Respiratory/Lung Sounds: Positive: Clear to Auscultation, Breath Sounds Present Cardiovascular: Positive: Normal, RRR Musculoskeletal: Positive: Normal Neurological: Positive: Normal Psychiatric: Positive: Normal Diagnostics - Vital Signs Vital Signs Temp Pulse Resp BP Pulse Ox 01/31/19 20:25 98.5 F 92 18 134/91 98 - Laboratory Lab Statement: Any lab studies that have been ordered have been reviewed, and results considered in the medical decision making process. Bite Injury Course/Dx - Course Course Of Treatment: 63-year-old male presents with tick bite to left side of body. States he did not had it this morning. tried to remove the tick and it was unable to remove it. He has no medical conditions. no allergies medication. On exam tick present on left side of back. removed with tick twister. Discussed doxycycline is not need as has not been on for 24 hours. Patient understands agrees with plan. - Diagnoses Differential Diagnosis/HQI/PQRI: Positive: Other - tick, lyme Provider Diagnosis: Tick bite Discharge - Sign-Out/Discharge Documenting (check all that apply): Patient Departure Patient Received Moderate/Deep Sedation with Procedure: No - Discharge Plan Condition: Good Disposition: HOME Patient Education Materials: Tick Bite (ED) Referrals: Jadiel Omalley MD [Primary Care Provider] - Additional Instructions: watch for any rash or fever Return to ED if develop any new or worsening symptoms - Billing Disposition and Condition Condition: GOOD Disposition: Home
[2019-01-31 22:29] VITALS: BP 137/88
== END | disposition home or self-care (01) ==
LOC: ED 20:24
DX: T14.8XXA Other injury of unspecified body region, initial encounter (principal); W57.XXXA Bitten or stung by nonvenomous insect and other nonvenomous arthropods, initial encounter; Y92.9 Unspecified place or not applicable; Z79.82 Long term (current) use of aspirin; M17.0 Bilateral primary osteoarthritis of knee; Z87.891 Personal history of nicotine dependence
CPT/HCPCS: 99281

== ENCOUNTER 2024-10-16 05:46 | Observation (INO) ==
[~2024-10-16 05:46] MED LIST changes: -Buffered Lidocaine 0.9% SYRIN* 5 ML/SYR SYRINGE INTRADERM ONE; -Buffered Lidocaine 0.9% SYRIN* 5 ML/SYR SYRINGE ONE; -Bupivacaine 0.5% SDV PF* 10-30ML VIAL ONE; -Dexamethasone IV* 4 MG/ML 1 ML (4 MG) IV SLOW PU ONE; -Dexamethasone IV* 4 MG/ML 1 ML (4 MG) ONE; -EPHEDrine (Pressors)* 50 MG/ML VIAL ONE; -EPINEPHRINE 1 MG/ML 1 ML VIAL ONE; -Famotidine IV* 10 MG/ML 2 ML (20 mg) IV ONE; -Famotidine IV* 10 MG/ML 2 ML (20 mg) ONE; -HYDROcodone/ACETAMIN 5-325 MG* 1 TAB PO PRN; -Ketorolac INJ* 30 MG/ML 1 ML VIAL ONE; -Levalbuterol 0.63MG/3ML NEB* UNIT OF USE INH ONE; -Lidocaine 2% PF * 5 ML VIAL ONE; +Metoclopramide 5 MG/ML VIAL (10 mg) IV PRN; -Midazolam* 1 MG/ML 5 ML VIAL (5 MG) ONE; -Mivacurium Chloride* 20 MG/10 ML VIAL IV ONE; +NS 0.45% 1000 ml BAG 1,000 ML IV SCH; +Naloxone 0.4 mg VIAL 0.4 mg/ml 1 ml VIAL IV PRN; -Naloxone* 0.4 MG/ML 1 ML VIAL IV PRN; +Ondansetron 4 mg VIAL 2 MG/ML 2 ml VIAL IV PRN; -Ondansetron INJ* 2 MG/ML VIAL ONE; -PROCHLORPERAZINE INJ 5 MG/ML 2 ML VIAL IV PRN; -Propofol* 10 MG/ML 20 ML BTL IV PUSH ONE; -ROPIVACAINE 5 MG/ML 30 ML BTL (0.5%) ONE; -Scopolamine 1.5 mg* PATCH ONE; -Scopolamine 1.5 mg* PATCH TRANSDERM ONE; -Scopolamine PATCH Remove* 1 NOTE MISC PATCH OFF ONE; -Silver Nitrate/Potassium Nitr* 1 EA STICK ONE; -ceFAZolin 2 GM (*##) 2 GM/100 ML BAG USE CEFA2SOL IVPB ONE; +fentaNYL 100 mcg/2 ml 50 MCG/ML VIAL IV PRN; -fentaNYL* 50 MCG/ML 2 ML VIAL (100 MCG VIAL) IV PRN; -fentaNYL* 50 MCG/ML 2 ML VIAL (100 MCG VIAL) ONE; -oxyCODONE/Acetamin 5/325 MG* TAB PO PRN
[2024-10-16] MEDS ORDERED: ceFAZolin 2 GM PREMIX 2 GM/50 ML BAG ONE (06:14)
[2024-10-16] MEDS ORDERED: Lidocaine 1% w EPI 1:200,000 SDV 30 ML VIAL ONE (06:35)
[2024-10-16] MEDS ORDERED: Vancomycin 1,000 MG VIAL ONE (06:36)
[2024-10-16] MEDS: Lactated Ringers 1000 ml BAG 1,000 ML IV SCH ×2 (06:38→13:34)
[2024-10-16] MEDS: Buffered Lidocaine 1% SYRIN 1 ml INTRADERM ONE (06:38)
[2024-10-16 06:39] LABS: Rapid COVID-19 Molecular Undetected (Undetected)
[2024-10-16] MEDS ORDERED: Dexamethasone IV 4 MG/ML VIAL 1 ml VIAL ONE ×2 (06:58→07:05)
[2024-10-16] MEDS ORDERED: ROPIVACAINE 5 MG/ML 30 ML BTL (0.5%) ONE (06:58)
[2024-10-16] MEDS ORDERED: Midazolam 5 mg/5 ml VIAL 1 mg/ml 5 ml VIAL (5 mg) ONE (06:58)
[2024-10-16] MEDS ORDERED: Ondansetron 4 mg VIAL 2 MG/ML 2 ml VIAL ONE (07:05)
[2024-10-16] MEDS ORDERED: Bupivacaine-MPF SPINAL 7.5 MG/ML - 2ML AMP ONE (07:05)
[2024-10-16] MEDS ORDERED: Propofol 10 MG/ML 20 ML BTL ONE (07:12)
[2024-10-16] MEDS ORDERED: Bupivacaine 0.5% SDV PF 30ML VIAL ONE (07:29)
[2024-10-16] MEDS ORDERED: Tranexamic Acid 1,000 MG/10 ML SDV ONE (07:39)
[2024-10-16] MEDS ORDERED: Phenylephrine 40 mcg/mL 10mL (400mcg) SYRINGE ONE (08:41)
[2024-10-16] MEDS ORDERED: Glycopyrrolate IV 0.2 MG/ML 1 ML VIAL ONE (08:55)
[2024-10-16] MEDS ORDERED: Calcium Carb (TUMS) 500 mg CHEW TAB PO PRN (09:10)
[2024-10-16] MEDS ORDERED: Ondansetron ODT 4 mg TAB 4 MG TAB PO PRN (09:10)
[2024-10-16] MEDS ORDERED: Morphine 2 MG/ML SYRINGE IV PRN (09:10)
[2024-10-16] MEDS ORDERED: Ondansetron 4 mg VIAL 2 MG/ML 2 ml VIAL IV PRN (09:10)
[2024-10-16] MEDS ORDERED: Lactulose 30 ml UDC PO PRN (09:10)
[2024-10-16] MEDS ORDERED: fentaNYL 100 mcg/2 ml 50 MCG/ML VIAL ONE (09:54)
[2024-10-16] MEDS: Acetaminophen IV 1 GM/100ML 1,000 MG/100 ML BAG IV ONE (14:09)
[2024-10-16] MEDS: ceFAZolin 2 GM PREMIX 2 GM/50 ML BAG IV SCH (16:14)
[2024-10-16] MEDS: Magnesium Hydroxide LIQ 30 ML UDC PO SCH (21:08)
[2024-10-17 06:29] LABS: Hematocrit 39.2 % (38-53); Mean Platelet Volume 7.9 fL (7.5-11.2); Platelet Count 219 10^3/uL (150-450)
[2024-10-17 07:00] LABS: Calcium 8.6 mg/dL (8.6-10.3); Creatinine, Serum 1.12 mg/dL (0.67-1.17); Potassium 4.5 mmol/L (3.5-5.0); eGFR CKD-EPI 70.2 (>60)
[2024-10-17] MEDS: Vitamin THERAPEUTIC TAB PO SCH (08:10)
[2024-10-17] MEDS: Magnesium Hydroxide LIQ 30 ML UDC PO PRN (08:10)
[2024-10-17 10:15] VITALS: BP 115/71
[2024-10-17 10:35] LABS: Hepatitis C Antibody Negative (Negative)
== END 2024-10-17 13:15 | disposition home or self-care (01) ==
LOC: MED 05:46 → OR 05:46 → SSU 10-17 07:38
PROVIDERS: ADMIT Orthopaedic Surgery; ATTEND Orthopaedic Surgery